=== PATIENT | female | born 1945 | race Caucasian/White ===

== ENCOUNTER 2020-04-03 16:44 | Inpatient (IN) ==
[2020-04-03] MEDS ORDERED: LORazepam 1 MG/2 ML VIAL IV STA (17:21)
[2020-04-03 17:28] LABS: Basophils # (auto) 0.01 K/uL (0-0.2); Basophils % (auto) 0.2 %; Eosinophils # (auto) 0.14 K/uL (0-0.5); Eosinophils % (auto) 2.5 %; Hematocrit (blood only) 44.9 % (37-47); Hemoglobin 15.6 g/dL (12.0-16.0); Lymphocytes % (auto) 37.4 %; Mean Corpuscular Hemoglobin 34.4 pg (25-34); Mean Corpuscular Hgb Conc 34.7 g/dL (32-36); Mean Corpuscular Volume 98.9 fL (80-100); Mean Platelet Volume 8.7 fL (7.4-10.4); Monocytes # (auto) 0.53 K/uL (0.11-0.59); Monocytes % (auto) 9.4 %; Neutrophils # (auto) 2.83 K/uL (1.4-6.5); Neutrophils % (auto) 50.5 %; Platelet Count 265 K/uL (130-400); RDW Coefficient of Variation 13.1 % (11.5-14.5); RDW Standard Deviation 47.4 fL (36.4-46.3); Red Blood Count 4.54 M/uL (4.2-5.4); White Blood Count 5.61 K/uL (4.8-10.8)
[2020-04-03 17:35] LABS: Albumin Level 4.1 gm/dl (3.4-5.0); BUN Creatinine Ratio 9.9 (10-20); Calcium 9.5 mg/dl (8.5-10.1); Creatinine Clr Calc Pharmacy 53.7 ml/min; Est GFR (Non-African American) 63.8; Magnesium 2.2 mg/dl (1.8-2.4); Potassium 3.9 mmol/L (3.5-5.1)
[2020-04-03 17:43] LABS: Partial Thromboplastin Time 27.4 Seconds (21.0-31.0); Prothrombin Time 10.6 Seconds (9.0-12.0)
--- NOTE | 2020-04-03 17:44 | XRay Report ---
XR chest 1V portable CLINICAL HISTORY: weakness COMPARISON STUDY: No previous studies for comparison. FINDINGS: The cardiac and mediastinal contours are normal. There is no evidence of focal pulmonary co nsolidation. There is no evidence of failure. No pleural effusions are visualized.[Slightly prominent markings the right medial lung base, likely representing a summation of vascular markings breast sha araceli and perhaps minor atelectasis. IMPRESSION: No active disease in the chest. ACT 112: Negative or not required by law. Electronically signed by: Dandre Oconnor M.D. 04/03/2020 5:43 PM
--- NOTE | 2020-04-03 17:49 | Emergency Department Note ---
Impression & Plan Hypertensive crisis, Hypertension, Headache ED Provider Note NAME: GLENIS RIVER AGE: 74 SEX: F : 1945 ARRIVES VIA: Ambulance INFORMANT: Patient, prehospital personnel ED PROVIDER(S): Jose Guadalupe Osuna DO CHIEF COMPLAINT: Elevated blood pressure HPI: The patient is a 74-year-old female who has a history of chronic hyper tension who presented to the emergency department for an evaluation of elevated blood pressure. The patient was seen at her primary care physician's office today and was noted to have a very elevated blood pressure. She complains of dizziness and headache. She also complains of back pain. Because of the symptoms her primary care physician called 911 and the patient arrived at the emergency department via ambulance. The patient denies having any nausea or vomiting. She has no chest pain. She denies having any lower extremity swelling or pain. She does have a history of abdominal aortic aneurysm but has no abdominal pain. She states her back pain is in her left upper thoracic area. She denies having any recent trauma. She states that she has been compliant with her outpatient medication regimen. She recently had a calcium channel david added to her drug regimen. She states that it was amlodipine. ROS: See above HPI for pertinent positives & negatives. A total of 10 systems reviewed and were otherwise negative. PAST MEDICAL HISTORY: See Below PAST SURGICAL HISTORY: See Below FAMILY HISTORY: See Below SOCIAL HISTORY: See Below HOME MEDICATIONS: See Below ALLERGIES: See Below VITALS: See Below PHYSICAL EXAMINATION: GENERAL: The patient is awake and alert. She is very anxious appearing. EYES: The conjunctivae are clear. The pupils are round and reactive. EARS, NOSE, MOUTH AND THROAT: The nose is without any evidence of any deformity. NECK: The neck is nontender and supple. RESPIRATORY: Normal respiratory effort is noted there is no evidence of wheezing rhonchi or rales CARDIOVASCULAR: Regular rate and rhythm noted there no murmurs rubs or gallops normal S1 normal S2. GASTROINTESTINAL: The abdomen is soft. Abdomen is nontender. BACK: No midline tenderness was elicited. There is tenderness around the left scapula. MUSCULOSKELETAL/EXTREMITIES: There is no evidence of gross deformity full range of motion is noted in the hips and shoulders. SKIN: There is no obvious evidence of any rash. There are no petechiae, pallor or cyanosis noted. Pulses are symmetric in both feet. NEUROLOGIC: Patient is awake alert and oriented x3 strength is symmetric patellar reflexes are 2+ bilaterally MEDICAL DECISION MAKING: The patient is a 74-year-old female who presented to the emergency department for an evaluation of neck pain headache and elevated blood pressure. She was seen by her primary care physician recently for similar complaints and returned to the primary care physician today for recheck after starting a new blood pressure medication. She was found to have very elevated blood pressure. This was felt to be the cause of some of her symptoms. She was sent to the emergency department by ambulance. The patient was treated with medication for blood pressure in the emergency department. She was also treated for anxiety in the emergency department. Pressure was significantly improved. [facility] have agreed to evaluate the patient in the emergency department for further management and disposition. Triage Nursing notes reviewed. Prior medical records reviewed Vital Signs: reviewed and remarkable for elevated blood pressure. Differential diagnosis: Benign hypertension, hypertensive emergency, cardiovascular pathology, toxicologic, pheochromocytoma, electrolyte abnormality, renal disease, endorgan damage, as well as other pathologies. ER treatment provided: See below Diagnostics interpreted by me: ECG: EKG was obtained in the emergency department. My interpretation is sinus bradycardia at 59 bpm. There is no ectopy. There was no acute ST segment abnormalities noted. No previous tracing was available for comparison. Cardiac Monitoring: An order was placed for continuous cardiac monitoring. The monitor shows a rate of 60 bpm with sinus rhythm. Laboratory studies: As stated above and show below. Imaging studies: See below Consultation(s): 1919: I discussed this case with Dr. Tristan who [facility]. Past Med/Surg History Medical History Abdominal aortic aneurysm Carotid stenosis Cerebrovascular disease COPD (chronic obstructive pulmonary disease) Coronary artery disease Dyslipidemia Essential tremor FH: total abdominal hysterectomy and bilateral salpingo-oophorectomy Hiatal hernia Hypertension Iliac artery stenosis, right Major depressive disorder Schatzki's ring Tobacco use disorder Surgical History H/O section Hx of colonoscopy Social History Smoking Status: Current every day smoker Cigarettes Per Day: 3; Hx Alcohol Use: No Hx Substance Use: No Beliefs That Will Affect Care: None Current Living Situation: Family Other Information That Helps Us Care for You: No Feels Safe at Home: Yes Safety Concerns: Feels Safe At This Time Assistive Devices: Glasses Allergies Allergies Allergy/AdvReac Type Severity Reaction Status Date / Time lisinopril [From Zestril] Allergy Intermediate Cough Verified 04/03/20 17:54 amlodipine AdvReac Intermediate headache/puffy Verified 04/03/20 20:32 head sensation as per px hydroxyzine [From Vistaril] AdvReac Intermediate FELT VERY Verified 04/03/20 17:54 "JUMPY". IVP DYE AdvReac Intermediate HEART Uncoded 04/03/20 17:54 RACING, PALPITATIONS Home Meds Home Medications Medication Instructions Recorded Confirmed citalopram 10 mg PO HS 04/03/20 04/03/20 clopidogrel 75 mg PO .DAILY @ 1300 04/03/20 04/03/20 lorazepam 0.5 mg PO BID 04/03/20 04/03/20 losartan-hydrochlorothiazide 1 tab PO QAM 04/03/20 04/03/20 pravastatin 20 mg PO HS 04/03/20 04/03/20 Results & Data (ED) Vital Signs Vital Signs - 24 hr 04/03/20 16:56 04/03/20 17:23 04/03/20 17:30 Temperature 36.5 C Temperature Source Oral Pulse Rate 77 56 L Respiratory Rate 17 21 Respiratory Effort / Characteristics Non-Labored Spontaneous Respiratory Depth Normal Blood Pressure 236/88 H 211/92 H Blood Pressure Mean 137 131 Pulse Oximetry 99 98 Oxygen Delivery Method Room Air Room Air Sepsis Recent Fever Within 48 Hours No Sepsis New/Unexplained Change in Mental Status N/A Sepsis Action Taken by Nursing No Action Required 04/03/20 18:31 04/03/20 18:57 04/03/20 19:28 Temperature Temperature Source Pulse Rate 55 L 56 L 63 Respiratory Rate 22 19 22 Respiratory Effort / Characteristics Respiratory Depth Blood Pressure 199/69 H 190/90 H 172/89 H Blood Pressure Mean 112 123 116 Pulse Oximetry 96 96 97 Oxygen Delivery Method Room Air Sepsis Recent Fever Within 48 Hours Sepsis New/Unexplained Change in Mental Status Sepsis Action Taken by Nursing 04/03/20 20:01 04/03/20 20:31 Temperature Temperature Source Pulse Rate 60 68 Respiratory Rate 21 24 Respiratory Effort / Characteristics Respiratory Depth Blood Pressure 194/71 H 158/83 H Blood Pressure Mean 112 108 Pulse Oximetry 96 96 Oxygen Delivery Method Sepsis Recent Fever Within 48 Hours Sepsis New/Unexplained Change in Mental Status Sepsis Action Taken by Snf Medications Current Medication List: was personally reviewed by me Laboratory Data Attestation: I reviewed the patient's lab results. Result diagrams: 04/03/20 Unknown 04/03/20 Unknown Lab Results 04/03/20 04/03/20 04/03/20 Range/Units 18:03 19:46 19:46 Urine Color Yellow Urine Appearance Clear (Clear) Urine pH 7.0 (4.5-7.5) Ur Specific [place] 1.009 (1.000-1.030) Urine Protein Negative (Negative) Urine Glucose (UA) Negative (Negative) Urine Ketones Negative (Negative) Urine Blood 1+ H (Negative) Urine Nitrite Negative (Negative) Urine Bilirubin Negative (Negative) Urine Urobilinogen Negative (Negative) Ur Leukocyte Esterase Negative (Negative) Urine WBC (Auto) 1-5 (0-5) /hpf Urine RBC (Auto) 5-10 H (0-4) /hpf U Hyaline Cast (Auto) 1-5 (0-5) /lpf U Epithel Cells (Auto) >30 H (0-5) /lpf Urine Bacteria (Auto) Negative (Negative) COVID-19 Eval Order Covid19 IDNow [facility] SARS-CoV-2, RNA, NAAT NEGATIVE (NEGATIVE) Administered Medications Discontinued Medications Hydralazine HCl (Hydralazine Hcl 20 Mg/Ml Vial) 5 mg IV NOW ONE Stop: 04/03/20 18:45 Last Admin: 04/03/20 18:57 Dose: 5 mg Documented by: [id number] Hydralazine HCl (Hydralazine 10 Mg Tab) 10 mg PO NOW STA Stop: 04/03/20 20:16 Last Admin: 04/03/20 21:08 Dose: 10 mg Documented by: [id number] Lorazepam (Ativan) 1 mg in 2 mls @ 2 mls/min IV NOW STA Stop: 04/03/20 17:22 Last Admin: 04/03/20 18:01 Dose: 2 mls/min Documented by: [id number] Lorazepam (Ativan) 0.5 mg in 1 mls @ 1 mls/min IV NOW STA Stop: 04/03/20 20:16 Last Admin: 04/03/20 20:41 Dose: 1 mls/min Documented by: [id number] Imaging Data Radiologist's Impression: Patient: GLENIS RIVERAdmit Date: 04/03/20MR#: [id number]: [address]Acct ID:[id number]: Date: [address] [place] [address] Zip: [place] [id number]: 74Location: EDSex: FRoom/Bed:Att Phy:Diagnosis: HTNPri Phy: PCP,NOService Date: 04/03/20Fam Phy:Interpreting Phy: Dandre Oconnor MDAdmit Phy: Ordering Phy: Jose Guadalupe Osuna DO cc: ~ CT head/brain wo con CLINICAL HISTORY: Severe headache COMPARISON STUDY: No previous studies for comparison. TECHNIQUE: Axial CT of the brain is performed from the vertex to the skull base. IV contrast was not administered for this examination. A dose lowering technique was utilized adhering to the principles of ALARA. CT DOSE: 537.48 mGy.cm FINDINGS: No intra or extra-axial mass lesions are visualized. There is no CT evidence of acute cortical infarction. There is no evidence of midline shift. There is no acute hemorrhage. No calvarial fractures are visualized. There are patchy white matter hypodensities likely on a small vessel basis. Prominent extra-axial CSF space within the frontal regions is likely secondary to atrophy. There is no evidence of pathologic ventricular dilatation. There is no evidence of acute sinusitis IMPRESSION: No acute intracranial findings ACT 112: Negative or not required by law. Electronically signed by: Dandre Oconnor M.D. 04/03/2020 5:48 PM Dictated: 04/03/201746Transcribed: 04/03/201746 Patient: GLENIS RIVERAdmit Date: 04/03/20MR#: [id number]: [address]Acct ID:[id number]: Date: [address] [place] [address] Zip: [place] [id number]: 74Location: EDSex: FRoom/Bed:Att Phy:Diagnosis: HTNPri Phy: PCP,NOService Date: 04/03/20Fam Phy:Interpreting Phy: Dandre Oconnor MDAdmit Phy: Ordering Phy: Jose Guadalupe Osuna, cc: ~ XR chest 1V portable CLINICAL HISTORY: weakness COMPARISON STUDY: No previous studies for comparison. FINDINGS: The cardiac and mediastinal contours are normal. There is no evidence of focal pulmonary consolidation. There is no evidence of failure. No pleural effusions are visualized.[Slightly prominent markings the right medial lung b ase, likely representing a summation of vascular markings breast shadow and perhaps minor atelectasis. IMPRESSION: No active disease in the chest. ACT 112: Negative or not required by law. Electronically signed by: Dandre Oconnor M.D. 04/03/2020 5:43 PM Dictated: 04/03/20 174Transcribed: 04/03/201741 Blood Pressure Blood Pressure Findings: Elevated blood pressure Blood Pressure Disposition: further management by hospitalist Discharge Plan Visit Data Chief Complaint: Hypertension Stated Complaint: HTN ED Provider: Jose Guadalupe Osuna Discharge Problem: Hypertensive crisis, Hypertension, Headache Patient Disposition: Admitted As Inpatient Condition: Good Discharge Instructions Interventions: ED Discharge Assessment Last Done: 04/03/20 21:05 Discharge Problem: Hypertension Qualifiers: Hypertension type: unspecified Qualified Code(s): I10 - Essential (primary) hypertension Headache Qualifiers: Headache type: unspecified Headache chronicity pattern: unspecified pattern Intractability: not intractable Qualified Code(s): R51.9 - Headache, unspecified
[2020-04-03 18:00] LABS: Bilirubin,Total 0.6 mg/dl (0.2-1); Globulin 4.1 gm/dl (2.5-4.0); Thyroid Stimulating Hormone 3.99 uIu/ml (0.300-4.500); Total Protein 8.2 gm/dl (6.4-8.2)
[2020-04-03 18:40] LABS: Appearance Urine Clear (Clear); Bacteria Urine Automated Negative (Negative); Bilirubin Urine Negative (Negative); Blood Urine 1+ (Negative); Color Urine Yellow; Epithelial Cell Urine Auto >30 /lpf (0-5); Glucose Urine UA Negative (Negative); Ketones Urine Negative (Negative); Leukocyte Esterase Urine Negative (Negative); Nitrite Urine Negative (Negative); Protein Urine Negative (Negative); Specific Gravity Urine 1.009 (1.000-1.030); Urobilinogen Urine Negative (Negative)
[2020-04-03] MEDS ORDERED: hydrALAZINE HCL 20 MG/ML VIAL IV ONE (18:44)
[2020-04-03] MEDS ORDERED: hydrALAZINE 10 MG TAB PO STA (20:15)
[2020-04-03] MEDS ORDERED: LORazepam 0.5 MG/1 ML VIAL IV STA (20:15)
--- NOTE | 2020-04-03 20:17 | History & Physical Report ---
Date of Service April 03, 2020 Assessment & Plan (1) Hypertensive crisis: Anxiety contributory Rule out sleep disordered breathing as contributory factor hx CVA hx CAD/PVD status post surgery hyperlipidemia, on statin Rx COPD, pulmonary status at baseline ongoing tobacco abuse prediabetes, recent outpatient hemoglobin A1c of 5.13 September 2019 PCU Add Hydralazine to current Losartan HCTZ Cardiology consult if BP unimproved in a.m. Anxiolytic as needed Psych consult Re: Overwhelming anxiety Outpatient sleep study Nicotine patch as needed DVT prophylaxis. Lovenox subcu Full code Text document was generated using [employer] voice recognition software. It may contain grammatical or spelling errors. Kindly contact undersigned for clarification of any documentation item in question. History of Present Illness Chief Complaint: High blood pressure Primary Care Provider: Dr. Miranda History obtained from patient and records. Medical history significant for CAD, CVA, PVD status post surgery, hypertension, hypertension, hyperlipidemia, COPD, ongoing tobacco abuse, prediabetes, anxiety/mood disorder. 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 Enalapril HCTZ switched to losartan HCTZ by PCP last week due to cough concerns with latter medication. Initially one half later to a whole tablet once daily. SBP 170s to 180s at home. Patient Amlodipine stopped after patient stated concerns about her head feeling very puffy from medication. Admits to overwhelming anxiety. Patient denies chest pain, S OB. Denies dietary discretion. Admits to snoring and disruptive sleep. No prior sleep studies. SBP at home 180s to 190s despite new medication. Mild dizziness complaints without headache. Posterior achy neck pain symptoms. SBP 230s at PCP's office. Patient sent to the ER for evaluation. IV hydralazine given at the ER. SBP currently 190s. 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 IVP DYE AdvReac Intermediate HEART Uncoded 04/03/20 17:54 RACING, PALPITATIONS Home Medications Medication Instructions Recorded Confirmed Type citalopram 10 mg PO HS 04/03/20 04/03/20 History clopidogrel 75 mg PO .DAILY @ 1300 04/03/20 04/03/20 History lorazepam 0.5 mg PO BID 04/03/20 04/03/20 History losartan-hydrochlorothiazide 1 tab PO QAM 04/03/20 04/03/20 History pravastatin 20 mg PO HS 04/03/20 04/03/20 History hydralazine 25 mg PO TID 30 Days #90 tab 04/06/20 Rx trazodone 25 mg PO HS PRN 30 Days #30 tab 04/06/20 Rx Past Med/Surg History Medical History Abdominal aortic aneurysm Carotid stenosis Cerebrovascular disease COPD (chronic obstructive pulmonary disease) Coronary artery disease Dyslipidemia Essential tremor FH: total abdominal hysterectomy and bilateral salpingo-oophorectomy Hiatal hernia Hypertension Iliac artery stenosis, right Major depressive disorder Schatzki's ring Tobacco use disorder Surgical History H/O section Hx of colonoscopy Social History Smoking Status: Current every day smoker Cigarettes Per Day: 3; Hx Alcohol Use: No Hx Substance Use: No Beliefs That Will Affect Care: Cheondoism (Buddhist ) Current Living Situation: Family Feels Safe at Home: Yes Assistive Devices: Glasses Review of Systems Review of Systems: As per HPI, all 10 systems reviewed, all other ROS negative Physical Exam Physical Exam: GENERAL: Comfortable, anxious, obese, well-groomed, no respiratory distress, tremulous SKIN: Normal color, warm HEENT: Bespectacled, [place] palpebral conjunctivae, no ptosis, moist buccal mucosa NECK : Supple, short neck, no tenderness CHEST : Decreased breath sounds , no tenderness HEART : Bradycardic, no obvious murmurs ABDOMEN: Some distention, nontender EXTREMITIES : Minimal LE swelling, no LE tenderness, no other conspicuous deformities noted NEUROLOGIC : Coherent, no facial asymmetry, chronic rest tremors, no other gross focality Results & Data Results & Data ([facility]) Vital Signs (Past 12 Hours) Vital Signs Temp Pulse Resp BP Pulse Ox 04/03/20 20:01 60 21 194/71 H 96 04/03/20 19:28 63 22 172/89 H 97 04/03/20 18:57 56 L 19 190/90 H 96 04/03/20 18:31 55 L 22 199/69 H 96 04/03/20 17:30 56 L 21 211/92 H 98 04/03/20 16:56 36.5 C 77 17 236/88 H 99 Laboratory Results Laboratory Results WBC 5.61 K/uL (4.8-10.8) 04/03/20 Unknown RBC 4.54 M/uL (4.2-5.4) 04/03/20 Unknown Hgb 15.6 g/dL (12.0-16.0) 04/03/20 Unknown Hct 44.9 % (37-47) 04/03/20 Unknown MCV 98.9 fL (80-100) 04/03/20 Unknown MCH 34.4 pg (25-34) H 04/03/20 Unknown MCHC 34.7 g/dL (32-36) 04/03/20 Unknown RDW Std Deviation 47.4 fL (36.4-46.3) H 04/03/20 Unknown RDW Coeff of Sho 13.1 % (11.5-14.5) 04/03/20 Unknown Plt Count 265 K/uL (130-400) 04/03/20 Unknown MPV 8.7 fL (7.4-10.4) 04/03/20 Unknown Immature Gran % (Auto) 0.0 % 04/03/20 Unknown Neut % (Auto) 50.5 % 04/03/20 Unknown Lymph % (Auto) 37.4 % 04/03/20 Unknown [place] % (Auto) 9.4 % 04/03/20 Unknown Eos % (Auto) 2.5 % 04/03/20 Unknown Baso % (Auto) 0.2 % 04/03/20 Unknown Neut # (Auto) 2.83 K/uL (1.4-6.5) 04/03/20 Unknown Lymph # (Auto) 2.10 K/uL (1.2-3.4) 04/03/20 Unknown [place] # (Auto) 0.53 K/uL (0.11-0.59) 04/03/20 Unknown Eos # (Auto) 0.14 K/uL (0-0.5) 04/03/20 Unknown Baso # (Auto) 0.01 K/uL (0-0.2) 04/03/20 Unknown Immature Gran # (Auto) 0.00 K/uL (0.00-0.02) 04/03/20 Unknown PT 10.6 Seconds (9.0-12.0) 04/03/20 Unknown INR 1.0 (0.9-1.1) 04/03/20 Unknown APTT 27.4 Seconds (21.0-31.0) 04/03/20 Unknown PTT Ratio 1.0 04/03/20 Unknown Sodium 136 mmol/L (136-145) 04/03/20 Unknown Potassium 3.9 mmol/L (3.5-5.1) 04/03/20 Unknown Chloride 101 mmol/L (98-107) 04/03/20 Unknown Carbon Dioxide 28 mmol/L (21-32) 04/03/20 Unknown Anion Gap 7.0 (3-11) 04/03/20 Unknown BUN 9 mg/dl (7-18) 04/03/20 Unknown Creatinine 0.88 mg/dl (0.6-1.2) 04/03/20 Unknown Est Cr Clr Drug Dosing 53.7 ml/min 04/03/20 Unknown Est GFR ( Amer) 74.0 04/03/20 Unknown Est GFR (Non-Af Amer) 63.8 04/03/20 Unknown BUN/Creatinine Ratio 9.9 (10-20) L 04/03/20 Unknown Glucose 93 mg/dl (70-99) 04/03/20 Unknown Calcium 9.5 mg/dl (8.5-10.1) 04/03/20 Unknown Magnesium 2.2 mg/dl (1.8-2.4) 04/03/20 Unknown Total Bilirubin 0.6 mg/dl (0.2-1) 04/03/20 Unknown AST 15 U/L (15-37) 04/03/20 Unknown ALT 22 U/L (12-78) 04/03/20 Unknown Alkaline Phosphatase 92 U/L (45-117) 04/03/20 Unknown Total Protein 8.2 gm/dl (6.4-8.2) 04/03/20 Unknown Albumin 4.1 gm/dl (3.4-5.0) 04/03/20 Unknown Globulin 4.1 gm/dl (2.5-4.0) H 04/03/20 Unknown Albumin/Globulin Ratio 1.0 (0.9-2) 04/03/20 Unknown TSH 3.990 uIu/ml (0.300-4.500) 04/03/20 Unknown Urine Color Yellow 04/03/20 18:03 Urine Appearance Clear (Clear) 04/03/20 18:03 Urine pH 7.0 (4.5-7.5) 04/03/20 18:03 Ur Specific [place] 1.009 (1.000-1.030) 04/03/20 18:03 Urine Protein Negative (Negative) 04/03/20 18:03 Urine Glucose (UA) Negative (Negative) 04/03/20 18:03 Urine Ketones Negative (Negative) 04/03/20 18:03 Urine Blood 1+ (Negative) H 04/03/20 18:03 Urine Nitrite Negative (Negative) 04/03/20 18:03 Urine Bilirubin Negative (Negative) 04/03/20 18:03 Urine Urobilinogen Negative (Negative) 04/03/20 18:03 Ur Leukocyte Esterase Negative (Negative) 04/03/20 18:03 Urine WBC (Auto) 1-5 /hpf (0-5) 04/03/20 18:03 Urine RBC (Auto) 5-10 /hpf (0-4) H 04/03/20 18:03 U Hyaline Cast (Auto) 1-5 /lpf (0-5) 04/03/20 18:03 U Epithel Cells (Auto) >30 /lpf (0-5) H 04/03/20 18:03 Urine Bacteria (Auto) Negative (Negative) 04/03/20 18:03 COVID-19 Eval Order Covid19 IDNow [facility] 04/03/20 19:[address] head: No acute intracranial findings Chest x-ray : No active disease in the chest. EKG as per my interpretation : Rate 55, sinus bradycardia, LAD, LAFB, no ischemia
[2020-04-03] MEDS ORDERED: ACETAMINOPHEN 325 MG TAB PO PRN (21:44)
[2020-04-03] MEDS ORDERED: PROMETHAZINE HCL 12.5 MG in SODIUM CHLORIDE 0.9% 50 ML IV PRN (21:44)
[2020-04-03] MEDS ORDERED: MoRPHine SULFATE 4 MG/ML 1 ML CARP\\VIAL IV PRN (21:44)
[2020-04-03] MEDS ORDERED: traMADol HCL 50 MG TABLET PO PRN (21:44)
[2020-04-03] MEDS: CITALOPRAM 20 MG TAB PO SCH (22:14)
[2020-04-03] MEDS: PRAVASTATIN SOD 20 MG TAB PO SCH (22:15)
[2020-04-03] MEDS: CLOPIDOGREL BISULFATE 75 MG TAB PO SCH (22:15)
[2020-04-03] MEDS: LORazepam 0.5 MG TAB PO SCH (22:18)
[2020-04-04 07:10] LABS: Eosinophils # (auto) 0.14 K/uL (0-0.5); Eosinophils % (auto) 2.8 %; Hematocrit (blood only) 40.8 % (37-47); Hemoglobin 14.1 g/dL (12.0-16.0); Immature Granulocytes # (auto) 0.01 K/uL (0.00-0.02); Immature Granulocytes % (auto) 0.2 %; Lymphocytes # (auto) 1.98 K/uL (1.2-3.4); Lymphocytes % (auto) 38.9 %; Mean Corpuscular Hemoglobin 34.1 pg (25-34); Mean Corpuscular Hgb Conc 34.6 g/dL (32-36); Mean Corpuscular Volume 98.6 fL (80-100); Mean Platelet Volume 8.5 fL (7.4-10.4); Monocytes # (auto) 0.49 K/uL (0.11-0.59); Monocytes % (auto) 9.6 %; Neutrophils # (auto) 2.47 K/uL (1.4-6.5); Neutrophils % (auto) 48.5 %; Platelet Count 214 K/uL (130-400); RDW Coefficient of Variation 13.2 % (11.5-14.5); RDW Standard Deviation 47.6 fL (36.4-46.3); Red Blood Count 4.14 M/uL (4.2-5.4); White Blood Count 5.09 K/uL (4.8-10.8)
[2020-04-04 07:41] LABS: BUN Creatinine Ratio 12.5 (10-20); Calcium 9.5 mg/dl (8.5-10.1); Creatinine Clr Calc Pharmacy 51.5 ml/min; Est GFR (African American) 69.2; Est GFR (Non-African American) 59.7; Potassium 3.9 mmol/L (3.5-5.1)
[2020-04-04] MEDS: NICOTINE 21 MG/24 HR TDSY TD SCH (08:20)
[2020-04-04] MEDS: ENOXAPARIN INJ 40 MG/0.4 ML SYR SQ SCH (08:20)
[2020-04-04] MEDS: hydrALAZINE 10 MG TAB PO SCH ×4 (08:21→20:28)
[2020-04-04] MEDS: LOSARTAN POTASSIUM 50 MG TAB PO SCH (08:29)
[2020-04-04] MEDS ORDERED: hydroCHLOROthiazide 25 MG TAB PO SCH (09:00)
[2020-04-04] MEDS: LORazepam 0.5 MG TAB PO SCH ×2 (10:06→20:31)
[2020-04-04] MEDS: CLOPIDOGREL BISULFATE 75 MG TAB PO SCH (12:09)
--- NOTE | 2020-04-04 12:55 | Electrocardiogram Report ---
Test Reason : Blood Pressure : / mmHG Vent. Rate : 059 BPM Atrial Rate : 059 BPM P-R Int : 184 ms QRS Dur : 074 ms QT Int : 410 ms P-R-T Axes : 022 -21 044 degrees QTc Int : 405 ms Sinus bradycardia possible Inferior infarct , age undetermined Abnormal ECG No previous ECGs available Confirmed by Asher Cotter ([id number] on 04/04/2020 12:55:44 PM Referred By: Bell Rojo Confirmed By:Erasto Cotter
--- NOTE | 2020-04-04 15:07 | Psychiatric Consultation ---
Date of Consultation April 04, 2020 Impression / Recommendations Impression Dr. Marcelino Rocha was directly involved in review and discussion of the patient's case and participated in medical decision making regarding treatment recommendations. RECOMMENDATIONS: 04/04 - Psychiatric consultation requested to evaluate patient for anxiety, with concerns it may be contributing to her hypertension. - Pt does admit to history of anxiety, but denies any current significant stressors. Her primary concern is her elevated blood pressure, which she feels triggers her anxiety. Pt denied significant concerns related to anxiety prior to being referred to the ED by her PCP. Pt is requesting cardiology consultation as she is very concerned about her cardiac/cardiovascular history. - We will continue her current medication regimen of citalopram 10mg and nathaniel zepam 1mg BID, as patient does not feel there is an acute need for medication adjustments. She did at least agree to a prn dose of trazodone 25mg for insomnia (could increase to 50mg if needed), which she states had been very helpful in the past. If effective, could be provided on discharge if approved by primary team. - Pt denies SI and any acute psychiatric concerns. No indication for inpa tient psychiatric hospitalization. Pt denies a need for formal psychiatric services as an outpatient. Please reach out to our service with any additional questions or updates. Risk Factors Assessment Do You Have Access To A Gun?: No Psych History Identifying Data 74-year-old female admitted medically on 04/03/2020 upon referral from her PCP's office with hypertensive crisis. Pt did report anxiety, which led to hospitalist request for psychiatric consultation. Chief Complaint "Who are you? I need to see that heart doctor." History of Present Illness Mago Franco is a 74-year-old female admitted medically on 04/03/2020 upon referral from her PCP's office for hypertensive crisis. SBP was reportedly in the 230's at PCP's office. Psychiatric consultation was requested by our hospitalist team due to concerns anxiety may be contributing to the patient's hypertension. Pt did participate in initial evaluation with our psychiatric nurse liaison team, and reported "today I'm not feeling anxious." Pt did participate in additional psychiatric assessment with this provider. She begins the conversation by asking this provider's name again, and then stating "I need to see the heart doctor." Pt shares a bit of her cardiac/cardiovascular history and states she has an abdominal aortic aneurysm and is concerned there is "a blockage somewhere that is leading to how I'm feeling." Pt states she was feeling fine earlier today, but her blood pressure increased "after a walked two laps around here." When asked about anxiety today, the patient state "not until I saw that number" - referring to her blood pressure. Pt denies any particularly distressing situational stressors, aside from her current admission. She does confirm her current medication regimen of citalopram 10mg and lorazepam 0.5mg BID. She does admit that 1-2 days a week she takes 1/4 - 1/2 of a tablet of lorazepam for anxiety that "comes out of no where." Pt shares that she had done well in the past on trazodone, which was started for anxiety/insomnia after the of her in 1987. Pt admits that "sometimes I still have sleepless nights." Pt does admit that sleep here in the hospital has been difficult due to unpredictable behavior of roommates. Pt denies SI/HI, and any acute psychiatric symptoms. She shares that she is not really wanting to change or adjust her psychotropic medications and states "if things are working, why change them. I feel fine." She did agree to a prn dose of trazodone that could be used for insomnia if necessary, as she did have t rouble sleeping last night due to her roommate. Pt agreed to a 25mg dose being available. Pt denied feeling a need for any formal psychiatric services as an outpatient. She did become tearful toward the end of our interview, admitting she was scared that "I really think there is something going on, and I hope they can figure it out." Pt was reassured that our staff would continue to check in with her during her stay. She was encouraged to reach out to our service with any additional questions. Past Psychiatric History Current Psychiatric Diagnosis: Anxiety Outpatient Services: None - medications prescribed by PCP Previous Psych Admissions: None Do You Have Access To A Gun?: No History of Previous Suicide Attempt: No Past Medication Trials: States she was put on trazodone for anxiety/insomnia after the of her in 1987. Allergies Allergy/AdvReac Type Severity Reaction Status Date / Time lisinopril [From Zestril] Allergy Intermediate Cough Verified 04/03/20 17:54 amlodipine AdvReac Intermediate headache/puffy Verified 04/03/20 20:32 head sensation as per px hydroxyzine [From Vistaril] AdvReac Intermediate FELT VERY Verified 04/03/20 17:54 "JUMPY". IVP DYE AdvReac Intermediate HEART Uncoded 04/03/20 17:54 RACING, PALPITATIONS Home Medications Medication Instructions Recorded Confirmed Type citalopram 10 mg PO HS 04/03/20 04/03/20 History clopidogrel 75 mg PO .DAILY @ 1300 04/03/20 04/03/20 History lorazepam 0.5 mg PO BID 04/03/20 04/03/20 History losartan-hydrochlorothiazide 1 tab PO QAM 04/03/20 04/03/20 History pravastatin 20 mg PO HS 04/03/20 04/03/20 History Family History Denies known family history of mental health conditions. Substance Abuse History Pt states she is an everyday smoker - 1ppd with desire to cut back. Denies significant alcohol use or use of other illicit substances. 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 Patient History Medical History Abdominal aortic aneurysm Carotid stenosis Cerebrovascular disease COPD (chronic obstructive pulmonary disease) Coronary artery disease Dyslipidemia Essential tremor FH: total abdominal hysterectomy and bilateral salpingo-oophorectomy Hiatal hernia Hypertension Iliac artery stenosis, right Major depressive disorder Schatzki's ring Tobacco use disorder Surgical History H/O section Hx of colonoscopy Social History Smoking Status: Current every day smoker Cigarettes Per Day: 3; Hx Alcohol Use: No Hx Substance Use: No Beliefs That Will Affect Care: Presybeterian (Spiritism ) Current Living Situation: Family Other Information That Helps Us Care for You: No Feels Safe at Home: Yes Safety Concerns: Feels Safe At This Time Assistive Devices: Glasses Physical Exam Psychiatric: Orientation: alert, oriented x 3 and cooperative Apperance: appropriately dressed, appropriately groomed and appeared stated age Obese- appearing female, seated on edge of bed in no acute distress. Pt does have a reported essential tremor that affects her head/neck. Appropriately dressed for setting, wearing hospital gown. Wearing corrective lenses. Short hair is neatly styled in curls, level of hygiene and grooming appearing adequate. Eye Contact: good eye contact Motor Behavior: + tremor (reported essential tremor of head/neck - long standing) Speech: normal rate/rhythm/volume of speech Affect: + anxious affect (only mildly so), + tearful affect (only briefly, reports it is related to fear of her hypertension) and mood congruent with affect Mood: + anxious mood ("I was anxious only after reading that number" - referring to BP) Thought Process: goal directed thought process, clear/coherent thought process and + perseveration (she admits she has been very focused on her blood pressure) Thought Content: reality based without delusions; no hopelessness and no worthlessness Suicidal Thoughts: denies suicidal thoughts, denies suicidal plan and denies suicidal intent Homicidal Thoughts: denies homicidal thoughts Hallucinations: no auditory hallucinations and no visual hallucinations Cognition: recent memory grossly intact, attention grossly intact and language grossly intact Estimated Intelligence: consistent with education level Insight: + fair insight Judgement: + fair judgement Vital Signs (Past 24 Hours): Last Vital Signs Temp 36.5 C 04/04/20 12:18 Pulse 70 04/04/20 12:18 Resp 20 04/04/20 12:18 BP 146/74 H 04/04/20 12:18 Pulse Ox 99 04/04/20 12:18 Review of Systems Constitutional: denied Cardiovascular: denied, but admits she is concerned about her blood pressure Respiratory: denied Gastrointestinal: denied Neurological: denied Psychiatric: denies symptoms other than stated above Total of at least 10 systems reviewed, pertinent positives as above and in HPI. Results & Data (PSY) Medications Administered Acetaminophen (Acetaminophen 325 Mg Tab) 650 mg PO Q4H PRN PRN Reason: Pain or Fever Stop: 05/03/20 21:43 Last Admin: 04/04/20 03:10 Dose: 650 mg Documented by: [id number] Citalopram Hydrobromide (Citalopram 20 Mg Tab) 10 mg PO HS [facility] Stop: 05/03/20 21:43 Last Admin: 04/03/20 22:14 Dose: 10 mg Documented by: [id number] Clopidogrel Bisulfate (Clopidogrel Bisulfate 75 Mg Tab) 75 mg PO DAILY@1300 [facility] Stop: 05/03/20 21:43 Last Admin: 04/04/20 12:09 Dose: 75 mg Documented by: [id number] Admin: 04/03/20 22:15 Dose: Not Given Documented by: [id number] Enoxaparin Sodium (Enoxaparin Inj 40 Mg/0.4 Ml Syr) 40 [facility]Q [facility] Stop: 05/04/20 08:59 Last Admin: 04/04/20 08:20 Dose: Not Given Documented by: [id number] Hydralazine HCl (Hydralazine 10 Mg Tab) 10 mg PO QID [facility] Stop: 05/04/20 08:59 Last Admin: 04/04/20 12:21 Dose: 10 mg Documented by: [id number] Admin: 04/04/20 08:21 Dose: 10 mg Documented by: [id number] Hydrochlorothiazide (Hydrochlorothiazide 25 Mg Tab) 12.5 mg PO [facility] Stop: 05/04/20 08:59 Last Admin: 04/04/20 08:21 Dose: 12.5 mg Documented by: [id number] Lorazepam (Lorazepam 0.5 Mg Tab) 0.5 mg PO BID [facility] Stop: 05/03/20 21:43 Last Admin: 04/04/20 10:06 Dose: 0.5 mg Documented by: [id number] Admin: 04/03/20 22:18 Dose: 0.5 mg Documented by: [id number] Losartan Potassium (Losartan Potassium 50 Mg Tab) 100 mg PO QAM [facility] Stop: 05/04/20 08:59 Last Admin: 04/04/20 08:29 Dose: 100 mg Documented by: [id number] Miscellaneous (Remove Nicoderm Patch) 1 ea N/A DAILY@0859 [facility] Stop: 05/04/20 08:58 Last Admin: 04/04/20 08:17 Dose: Not Given Documented by: [id number] Nicotine (Nicotine 21 Mg/24 Hr Tdsy) 21 mg TD QAM [facility] Stop: 05/04/20 08:59 Last Admin: 04/04/20 08:20 Dose: 21 mg Documented by: [id number] Pravastatin Sodium (Pravastatin Sod 20 Mg Tab) 20 mg PO HS [facility] Stop: 05/03/20 21:43 Last Admin: 04/03/20 22:15 Dose: 20 mg Documented by: [id number] Coding Level of Care Code 12486 U Intl Hosp Care Lvl 3
[2020-04-04] MEDS: LORazepam 0.5 MG/1 ML VIAL IV PRN (16:31)
--- NOTE | 2020-04-04 16:33 | Hospitalist Progress Note ---
Date of Service April 04, 2020 Assessment & Plan (1) Hypertensive crisis: Hypertensive urgency CT Head:No acute intracranial findings Anxiety could be contributing Normal TSH Check ECHO H/O Amlodipine Intolerance Continue losartan, hydrochlorothiazide Added Hydralazine Consider Cardiology eval if needed May need sleep study as outpatient Anxiety Disorder Continue citalopram 10 mg and lorazepam 1mg BID Trazodone 25 mg as needed for insomnia Appreciate Psychiatry Input Hyperlipidemia H/O CVA PVD S/P surgery on statin, Plavix COPD Pulmonary status at baseline Monitor Prediabetes Outpatient hemoglobin A1c of 5.13 September 2019 Tobacco use disorder Advised to quit smoking Nicotine patch DVT Px: Lovenox SQ Code Status Full code Admission and Anticipated Discharge Date Admission Date: April 03, 2020 Subjective Patient is seen and examined at bedside States headache resolved Denies any change in vision Denies chest pain, shortness of breath, dizziness, nausea, abdominal pain Admits to having anxiety issues Offers no other complaints Review of Systems Review of Systems: All systems reviewed & are unremarkable except as noted in HPI & below Physical Exam Physical Exam: Physical Exam: Vitals signs as noted above General Appearance:Moderately built and nourished, no apparent distress Head: normocephalic, Atraumatic Eyes: normal inspection, EOMI Neck: supple, Trachea midline Respiratory/Chest: Normal breath sounds, CTA Cardiovascular: S1, S2, No murmur Abdomen/GI:Soft, Non tender, Bowel sounds present Extremities/Musculoskelatal:normal inspection, no edema Neurologic/Psych:AAOX3, grossly no focal neurological deficits Skin: normal color, warm Results & Data Results & Data ([facility]) Vital Signs (Past 12 Hours) Vital Signs Temp Pulse Pulse Resp BP BP Pulse Ox 04/04/20 15:26 36.6 C 69 22 193/102 H 184/83 H 96 04/04/20 12:18 36.5 C 70 20 146/74 H 99 04/04/20 08:19 36.6 C 71 16 150/82 H 97 04/04/20 07:40 56 L Laboratory Results Short CBC 04/03/20 04/04/20 Range/Units Unknown 06:45 WBC 5.61 5.09 (4.8-10.8) K/uL Hgb 15.6 14.1 (12.0-16.0) g/dL Hct 44.9 40.8 (37-47) % Plt Count 265 214 (130-400) K/uL BMP 04/03/20 04/04/20 Unknown 06:45 Sodium 136 139 Potassium 3.9 3.9 Chloride 101 104 Carbon Dioxide 28 28 BUN 9 12 Creatinine 0.88 0.93 Glucose 93 94 Calcium 9.5 9.5 Liver Function 04/03/20 Range/Units Unknown Total Bilirubin 0.6 (0.2-1) mg/dl AST 15 (15-37) U/L ALT 22 (12-78) U/L Alkaline Phosphatase 92 (45-117) U/L Albumin 4.1 (3.4-5.0) gm/dl Urine 04/03/20 Range/Units 18:03 Urine Color Yellow Urine Appearance Clear (Clear) Urine pH 7.0 (4.5-7.5) Ur Specific [place] 1.009 (1.000-1.030) Urine Protein Negative (Negative) Urine Glucose (UA) Negative (Negative)
[2020-04-04] MEDS ORDERED: traZODone HCL 50 MG TAB PO PRN (17:22)
[2020-04-04] MEDS: CITALOPRAM 20 MG TAB PO SCH (20:28)
[2020-04-04] MEDS: PRAVASTATIN SOD 20 MG TAB PO SCH (20:29)
[2020-04-04] MEDS ORDERED: ALUMINUM/MAGNESIUM SUSP 30 ML UDC PO STA (20:51)
[2020-04-04] MEDS ORDERED: hydrALAZINE HCL 25 MG TAB PO STA (20:54)
[2020-04-04] MEDS: NITROGLYCERIN SL 0.4 MG/TAB TAB SL STA ×2 (21:24→22:13)
[2020-04-04 21:27] LABS: Partial Thromboplastin Time 26.6 Seconds (21.0-31.0)
[2020-04-04] MEDS ORDERED: diphenhydrAMINE 50 MG/ML VIAL IV STA (22:43)
[2020-04-04] MEDS ORDERED: methylPREDNISolone 40 MG in SYRINGE 0 ML IV STA (22:46)
[2020-04-05] MEDS ORDERED: OPTIRAY 320 125ml IV ONE (00:26)
[2020-04-05] MEDS ORDERED: bisacodyL 10 MG SUPP PR PRN (00:54)
[2020-04-05 02:38] LABS: Eosinophils # (auto) 0.02 K/uL (0-0.5); Eosinophils % (auto) 0.3 %; Hematocrit (blood only) 41.9 % (37-47); Hemoglobin 14.9 g/dL (12.0-16.0); Immature Granulocytes # (auto) 0.01 K/uL (0.00-0.02); Immature Granulocytes % (auto) 0.1 %; Lymphocytes # (auto) 0.71 K/uL (1.2-3.4); Lymphocytes % (auto) 10.1 %; Mean Corpuscular Hemoglobin 34.6 pg (25-34); Mean Corpuscular Hgb Conc 35.6 g/dL (32-36); Mean Corpuscular Volume 97.2 fL (80-100); Mean Platelet Volume 8.5 fL (7.4-10.4); Monocytes # (auto) 0.09 K/uL (0.11-0.59); Monocytes % (auto) 1.3 %; Neutrophils # (auto) 6.23 K/uL (1.4-6.5); Neutrophils % (auto) 88.2 %; Platelet Count 259 K/uL (130-400); RDW Coefficient of Variation 13.1 % (11.5-14.5); RDW Standard Deviation 46.9 fL (36.4-46.3); Red Blood Count 4.31 M/uL (4.2-5.4); White Blood Count 7.06 K/uL (4.8-10.8)
[2020-04-05 02:50] LABS: Partial Thromboplastin Time 27.1 Seconds (21.0-31.0)
[2020-04-05 02:55] LABS: BUN Creatinine Ratio 17.4 (10-20); Blood Urea Nitrogen 13 mg/dl (7-18); Carbon Dioxide 29 mmol/L (21-32); Chloride 104 mmol/L (98-107); Creatinine Clr Calc Pharmacy 61.4 ml/min; Est GFR (African American) 85.6; Est GFR (Non-African American) 73.8; Glucose 122 mg/dl (70-99); Magnesium 2.1 mg/dl (1.8-2.4); Potassium 3.8 mmol/L (3.5-5.1); Sodium 136 mmol/L (136-145)
[2020-04-05 03:00] LABS: Troponin I < 0.015 ng/ml (0-0.045)
[2020-04-05] MEDS ORDERED: SODIUM CHLORIDE 0.9% 500 ML IV ONE (03:03)
--- NOTE | 2020-04-05 06:40 | Communication Note ---
Date of Service: April 04, 2020 Patient complaint of substernal pain going to her back as per RN. " Similar to previous heart attack/stroke as per patient." SBP 200s Patient refused nitroglycerin. Patient requested for Tums. Discomfort relieved by Tums. EKG as per my interpretation : Rate 60, NSR, LAD, LAFB, 1 AVB, no ischemia CT chest initial read: No thoracic aortic aneurysm or dissection. No pulmonary embolism. No pulmonary parenchymal abnormality. CT abdomen pelvis initial read: Ectatic infrarenal abdominal aorta measuring 2.9 cm with atheromatous calcification. AP Chest pain Uncontrolled hypertension Rule out ACS, hx CAD Continue home Plavix Continue home losartan HCTZ Titrate hydralazine Follow troponin Follow TTE ordered by AM provider Cardiology consult in a.m. RE chest pain Will relay to AM provider.
--- NOTE | 2020-04-05 08:31 | CT Scan Report ---
CT angio abdomen pelvis w con CT DOSE: CLINICAL HISTORY: Back pain. History of aneurysm. TECHNIQUE: CT angiography was performed in a dynamic helical fashion during intravenous administratio n of 119 cc of Optiray 320. MIP images were acquired. A dose lowering technique was utilized adherin g to the principles of ALARA. COMPARISON STUDY: None. FINDINGS: There are minimal dependent atelectatic changes at the lung bases. There is a small hiatal hernia There are several small hepatic hypodensities, likely representing cysts. The gallbladder is surgically absent. No splenic lesions are visualized in the central face study. No pancreatic masses are visualized. No adrenal masses are visualized. No solid renal masses are visualized in this arterial phase study. Renal hypodensities are felt to re present cysts. There is no hydronephrosis. There are no transition zones indicate bowel obstruction. There is colonic diverticulosis. There is n o evidence of acute diverticulitis. There is a lower anterior abdominal wall ventral hernia containing small bowel loops. This is not obs tructive. The appendix appears normal. The uterus is surgically absent There are diffuse atheromatous changes present within the abdominal aorta. There is no evidence of he modynamically significant celiac superior mesenteric or renal artery stenosis. There is ectasia of th e perirenal abdominal aorta which measures 28 mm in maximal diameter. There is a patent right common iliac artery stent. There is no evidence of hemodynamically significant iliac artery stenosis. IMPRESSION: 1. Ectasia of the infrarenal abdominal aorta which measures 28 mm in diameter 2. No evidence of celiac superior mesenteric or renal artery stenosis 3. Suprapubic ventral hernia containing small bowel loops. There is no evidence of obstruction 4. Normal appendix 5. Diverticulosis. No evidence of acute diverticulitis ACT 112: Negative or not required by law. Electronically signed by: Dandre Oconnor M.D. 04/05/2020 8:30 AM
--- NOTE | 2020-04-05 08:39 | CT Scan Report ---
CT ANGIOGRAPHY OF THE CHEST DISSECTION PROTOCOL CLINICAL HISTORY: Chest and back pain. Evaluate for dissection. COMPARISON STUDY: Chest radiograph April 03 2020. TECHNIQUE: Patient was premedicated for IV dye allergy as per ED protocol. Before and following the I V administration of 119 mL of Optiray-320, helical axial images of the chest were obtained. Maximal intensity projections and sagittal and coronal reformats were viewed on an independent 3D workstation . IV contrast was administered without complication. Automated exposure control was utilized for th e study. A dose lowering technique was utilized adhering to the principles of ALARA. CT DOSE: 1562.35 mGy.cm FINDINGS: The caliber of the thoracic aorta is normal. There is no intramural hematoma or thoracic a ortic dissection. Mild cardiomegaly is noted. There is moderate coronary calcification. No pulmonary emboli are identified. The central airways are patent. There is no consolidation to suggest pneumonia . No pneumothorax or pleural effusion is noted. Mild emphysema is present. No acute rib or thoracic s pine fracture is noted. There is a small hiatal hernia. Lateral segment hepatic lesion reflects a cys t. The gallbladder is surgically absent. The abdomen and pelvis will be reported separately. IMPRESSION: 1. No thoracic aortic dissection. 2. No acute process within the chest. 3. Mild emphysema. 4. Small hiatal hernia. ACT 112: Negative or not required by law. Electronically signed by: Maykel Demarco M.D. 04/05/2020 8:38 AM
[2020-04-05] MEDS ORDERED: hydrALAZINE HCL 25 MG TAB PO SCH (09:00)
[2020-04-05] MEDS: NICOTINE 21 MG/24 HR TDSY TD SCH (09:09)
[2020-04-05] MEDS: LOSARTAN POTASSIUM 50 MG TAB PO SCH (09:10)
[2020-04-05] MEDS: ENOXAPARIN INJ 40 MG/0.4 ML SYR SQ SCH (09:11)
[2020-04-05] MEDS: LORazepam 0.5 MG TAB PO SCH ×2 (09:14→22:30)
--- NOTE | 2020-04-05 11:31 | Cardiology Consultation ---
Date of Consultation April 05, 2020 Assessment & Plan (1) Hypertensive crisis: (2) Atypical chest pain: (3) PVD (peripheral vascular disease): 74-year-old female evaluated regarding atypical chest discomfort. No evidence of acute coronary syndrome with nonischemic ECG and undetectable cardiac enzymes. CT angiogram of the chest without evidence of dissection or pulmonary embolus. Technically limited 2D transthoracic echocardiogram demonstrates preserved left ventricular systolic function without significant valvular pathology. Continue losartan/hydrochlorothiazide. 10 mg dose of hydralazine ineffective, however, patient demonstrating improved clinical response to 25 mg. Intolerance to amlodipine noted. Consider transition from hydralazine to alternative calcium channel david, felodipine or trial of low-dose nonselective beta-david (carvedilol 3.125 mg twice daily) in outpatient setting. History of Present Illness Reason for Consultation: Chest pain, hypertensive urgency Requesting Physician: Dr. Augustin Attending Physician: Jung Powell MD History of Present Illness 74-year-old female presented to the emergency department due to uncontrolled hypertension. Evaluated by primary care physician 04/03/2020 and referred to the emergency department. Blood pressure elevated since admission. Hydralazine 25 mg added to medications yesterday. Blood pressure slowly improving. Last evening, patient reported chest and neck discomfort. ECG without ischemic changes. This morning she notes an episode of chest pain associated with echocardiogram. Denies any chest heaviness or tightness. No shortness of breath, palpitations, lightheadedness, dizziness, syncope, or near syncope. Per chart review, she follows with a environmental specialist in [place]. History of chronic class II3 angina although cardiac catheterization performed in 2016 demonstrated mild to moderate nonobstructive coronary disease with a 40% LAD, and 30% circumflex stenosis. Other pertinent cardiovascular history noted below. Currently, patient is resting comfortably. Denies chest discomfort or heaviness this morning. Cardiac enzymes are negative x2 sets. No dysrhythmias on telemetry. Intolerance to lisinopril and amlodipine noted per chart review. She reported headache with 2.5 mg of amlodipine in the past, and cough associated with lisinopril. Tolerating hydralazine thus far. Admits to significant dietary indiscretion/excessive sodium intake in the outpatient setting. Consuming deli meats and salted snacks on a daily basis. Offers no other concerns/complaints at this time. Allergies Allergy/AdvReac Type Severity Reaction Status Date / Time lisinopril [From Zestril] Allergy Intermediate Cough Verified 04/03/20 17:54 amlodipine AdvReac Intermediate headache/puffy Verified 04/03/20 20:32 head sensation as per px hydroxyzine [From Vistaril] AdvReac Intermediate FELT VERY Verified 04/03/20 17:54 "JUMPY". IVP DYE AdvReac Intermediate HEART Uncoded 04/03/20 17:54 RACING, PALPITATIONS Home Medications Medication Instructions Recorded Confirmed Type citalopram 10 mg PO HS 04/03/20 04/03/20 History clopidogrel 75 mg PO .DAILY @ 1300 04/03/20 04/03/20 History lorazepam 0.5 mg PO BID 04/03/20 04/03/20 History losartan-hydrochlorothiazide 1 tab PO QAM 04/03/20 04/03/20 History pravastatin 20 mg PO HS 04/03/20 04/03/20 History hydralazine 25 mg PO TID 30 Days #90 tab 04/06/20 Rx trazodone 25 mg PO HS PRN 30 Days #30 tab 04/06/20 Rx Patient History Medical History Abdominal aortic aneurysm Carotid stenosis Cerebrovascular disease COPD (chronic obstructive pulmonary disease) Coronary artery disease Dyslipidemia Essential tremor FH: total abdominal hysterectomy and bilateral salpingo-oophorectomy Hiatal hernia Hypertension Iliac artery stenosis, right Major depressive disorder Schatzki's ring Tobacco use disorder Surgical History H/O section Hx of colonoscopy Social History Smoking Status: Current every day smoker Cigarettes Per Day: 3; Hx Alcohol Use: No Hx Substance Use: No Beliefs That Will Affect Care: Sabianism (Latter-Day ) Current Living Situation: Family Feels Safe at Home: Yes Assistive Devices: Glasses Review of Systems Review of Systems: All systems reviewed & are unremarkable except as noted in Subjective Physical Exam Constitutional: well developed and well nourished; no acute distress Respiratory: + abnormal respiratory effort, no respiratory distress and no labored breathing Auscultation: lungs clear to auscultation bilaterally; no crackles, no rales, no rhonchi and no wheezes Cardiovascular: Rate/Rhythm: regular rate and regular rhythm Heart Sounds: normal S1 and normal S2; no murmur Vessels: radial pulses present; no JVD and no carotid bruit Extremities: no edema Gastrointestinal (Abdomen): Inspection/Auscultation: abdomen normal to inspection and normal bowel sounds; abdomen not distended Percussion/Palpation: abdomen soft; abdomen nontender, no guarding and abdomen not rigid Musculoskeletal: Head/Neck/Chest: normocephalic and head atraumatic Skin: no rashes, warm and dry Neurologic: CN's II-XI intact bilaterally and moves all extremities Motor/Sensory: no tremor Psychiatric: Orientation: alert and oriented x 3 Affect: + anxious affect Results & Data ([facility]) Vital Signs (Past 12 Hours) Vital Signs Temp Pulse Pulse Resp BP Pulse Ox 04/05/20 07:51 36.7 C 71 18 136/84 95 04/05/20 07:00 62 04/05/20 03:32 37.1 C 59 L 16 155/79 H 93 04/05/20 00:00 69 04/04/20 23:43 36.3 C L 69 20 176/80 H 93
--- NOTE | 2020-04-05 12:22 | XRay Report ---
XR cervical spine 2 or 3V CLINICAL HISTORY: Neck pain COMPARISON STUDY: No previous studies for comparison. FINDINGS: The prevertebral soft tissues are normal. No fractures or subluxations are visualized. Ther e are moderate multilevel degenerative changes with multilevel disc space narrowing and small osteoph ytes. IMPRESSION: 1. Moderate multilevel degenerative change 2. No acute fractures or traumatic subluxations identified. ACT 112: Negative or not required by law. Electronically signed by: Dandre Oconnor M.D. 04/05/2020 12:21 PM
[2020-04-05] MEDS: CLOPIDOGREL BISULFATE 75 MG TAB PO SCH (12:44)
--- NOTE | 2020-04-05 13:14 | Electrocardiogram Report ---
Test Reason : Blood Pressure : / mmHG Vent. Rate : 062 BPM Atrial Rate : 062 BPM P-R Int : 194 ms QRS Dur : 078 ms QT Int : 402 ms P-R-T Axes : 031 -32 054 degrees QTc Int : 408 ms Normal sinus rhythm Left axis deviation Inferior infarct , age undetermined Abnormal ECG When compared with ECG of 04-APR-2020 20:12, (unconfirmed) No significant change was found Confirmed by Jose Guadalupe Alas ([id number]) on 04/05/2020 1:14:05 PM Referred By: Bell Rojo Confirmed By:Jose Guadalupe Alas
--- NOTE | 2020-04-05 13:14 | Electrocardiogram Report ---
Test Reason : Blood Pressure : / mmHG Vent. Rate : 061 BPM Atrial Rate : 061 BPM P-R Int : 190 ms QRS Dur : 084 ms QT Int : 410 ms P-R-T Axes : 034 -31 074 degrees QTc Int : 412 ms Normal sinus rhythm Left axis deviation Abnormal ECG When compared with ECG of 03-APR-2020 17:19, No significant change was found Confirmed by Jose Guadalupe Alas ([id number]) on 04/05/2020 1:13:49 PM Referred By: Bell Rojo Confirmed By:Jose Guadalupe Alas
--- NOTE | 2020-04-05 13:28 | Hospitalist Progress Note ---
Date of Service April 05, 2020 Assessment & Plan (1) Hypertensive crisis: Hypertensive urgency Atypical Chest Pain CT Head:No acute intracranial findings Anxiety could be contributing Normal TSH ECHO: EF 65 to 70%. Grade 1 diastolic dysfunction. No regional wall motion abnormalities noted. Trace mitral regurgitation. Negative Troponin H/O Amlodipine Intolerance Continue losartan, hydrochlorothiazide Appreciate Cardiology Input Hydralazine increased to 25mg TID May need sleep study as outpatient Plan to transition to femoral neck pain or carvedilol in the outpatient setting. Anxiety Disorder Continue citalopram 10 mg and lorazepam BID Trazodone 25 mg as needed for insomnia Appreciate Psychiatry Input Hyperlipidemia H/O CVA PVD S/P surgery on statin, Plavix COPD Pulmonary status at baseline Monitor Prediabetes Outpatient hemoglobin A1c of 5.13 September 2019 Tobacco use disorder Advised to quit smoking Nicotine patch DVT Px: Lovenox SQ Code Status Full code Admission and Anticipated Discharge Date Admission Date: April 03, 2020 Subjective Patient is seen and examined at bedside States having neck discomfort Denies chest pain this morning Discussed with cardiology today Also denies dyspnea, dizziness, nausea, abdominal pain Review of Systems Review of Systems: All systems reviewed & are unremarkable except as noted in HPI & below Physical Exam Physical Exam: Physical Exam: Vitals signs as noted above General Appearance:Moderately built and nourished, no apparent distress Head: normocephalic, Atraumatic Eyes: normal inspection, EOMI Neck: supple, Trachea midline Respiratory/Chest: Normal breath sounds, CTA Cardiovascular: S1, S2, No murmur Abdomen/GI:Soft, Non tender, Bowel sounds present Extremities/Musculoskelatal:normal inspection, no edema Neurologic/Psych:AAOX3, grossly no focal neurological deficits Skin: normal color, warm Results & Data Results & Data ([facility]) Vital Signs (Past 12 Hours) Vital Signs Temp Pulse Pulse Resp BP Pulse Ox 04/05/20 12:12 36.3 C L 74 20 162/82 H 96 04/05/20 07:51 36.7 C 71 18 136/84 95 04/05/20 07:00 62 04/05/20 03:32 37.1 C 59 L 16 155/79 H 93 Laboratory Results Short CBC 04/05/20 Range/Units 02:12 WBC 7.06 (4.8-10.8) K/uL Hgb 14.9 (12.0-16.0) g/dL Hct 41.9 (37-47) % Plt Count 259 (130-400) K/uL BMP 04/05/20 02:12 Sodium 136 Potassium 3.8 Chloride 104 Carbon Dioxide 29 BUN 13 Creatinine 0.78 Glucose 122 H Calcium 9.0 Cardiac Enzymes 04/04/20 04/05/20 Range/Units 20:56 02:12 Troponin I < 0.015 < 0.015 (0-0.045) ng/ml
[2020-04-05] MEDS: hydrALAZINE HCL 25 MG TAB PO SCH ×2 (14:00→21:35)
[2020-04-05] MEDS: LORazepam 0.5 MG/1 ML VIAL IV PRN (14:36)
[2020-04-05] MEDS: CITALOPRAM 20 MG TAB PO SCH (21:32)
[2020-04-05] MEDS: PRAVASTATIN SOD 20 MG TAB PO SCH (21:34)
[2020-04-06] MEDS ORDERED: COUGH DROP (SUGAR FREE) LOZ 24 LOZ/1 BOX BUCCAL STA (05:54)
[2020-04-06] MEDS ORDERED: COUGH DROP (SUGAR FREE) LOZ 24 LOZ/1 BOX BUCCAL ONE (05:56)
[2020-04-06] MEDS: hydrALAZINE HCL 25 MG TAB PO SCH (06:02)
[2020-04-06 07:42] LABS: BUN Creatinine Ratio 22.4 (10-20); Calcium 8.9 mg/dl (8.5-10.1); Creatinine Clr Calc Pharmacy 53.8 ml/min; Est GFR (Non-African American) 63.8; Potassium 3.3 mmol/L (3.5-5.1)
[2020-04-06] MEDS ORDERED: POTASSIUM CHLORIDE CRTAB 20 MEQ TABCR PO ONE (08:30)
[2020-04-06] MEDS ORDERED: hydroCHLOROthiazide 25 MG TAB PO SCH (09:00)
--- NOTE | 2020-04-06 09:13 | Hospitalist Progress Note ---
Date of Service April 06, 2020 Assessment & Plan (1) Hypertensive crisis: Hypertensive urgency Atypical Chest Pain CT Head:No acute intracranial findings Anxiety could be contributing Normal TSH ECHO: EF 65 to 70%. Grade 1 diastolic dysfunction. No regional wall motion abnormalities noted. Trace mitral regurgitation. Negative Troponin H/O Amlodipine Intolerance Continue losartan, hydrochlorothiazide Appreciate Cardiology Input Hydralazine increased to 25mg TID May need sleep study as outpatient Plan to transition from Hydralazine to felodipine or carvedilol in the outpatient setting. Bp better controlled No recurrence of chest pain Anxiety Disorder Continue citalopram 10 mg and lorazepam BID Trazodone 25 mg as needed for insomnia Appreciate Psychiatry Input Hyperlipidemia H/O CVA PVD S/P surgery on statin, Plavix COPD Pulmonary status at baseline Monitor Prediabetes Outpatient hemoglobin A1c of 5.13 September 2019 Tobacco use disorder Advised to quit smoking Nicotine patch DVT Px: Lovenox SQ Code Status Full code Disposition Plan to discharge home today Admission and Anticipated Discharge Date Admission Date: April 03, 2020 Subjective Patient is seen and examined at bedside States feeling well today No recurrence of chest pain Neck pain is much improved Had slept well BP better controlled Denies dyspnea, dizziness, nausea, abdominal pain Review of Systems Review of Systems: All systems reviewed & are unremarkable except as noted in HPI & below Physical Exam Physical Exam: Physical Exam: Vitals signs as noted above General Appearance:Moderately built and nourished, no apparent distress Head: normocephalic, Atraumatic Eyes: normal inspection, EOMI Neck: supple, Trachea midline Respiratory/Chest: Normal breath sounds, CTA Cardiovascular: S1, S2, No murmur Abdomen/GI:Soft, Non tender, Bowel sounds present Extremities/Musculoskelatal:normal inspection, no edema Neurologic/Psych:AAOX3, grossly no focal neurological deficits Skin: normal color, warm Results & Data Results & Data ([facility]) Vital Signs (Past 12 Hours) Vital Signs Temp Pulse Pulse Pulse Resp BP Pulse Ox 04/06/20 08:02 37.0 C 75 18 110/65 96 04/06/20 07:00 65 04/06/20 05:51 109/67 04/06/20 04:00 36.7 C 60 18 134/75 96 04/06/20 00:27 68 04/05/20 23:09 37.1 C 77 18 110/66 96 Laboratory Results [facility] 04/06/20 06:12 Sodium 137 Potassium 3.3 L Chloride 104 Carbon Dioxide 28 BUN 20 H D Creatinine 0.88 Glucose 99 Calcium 8.9
--- NOTE | 2020-04-06 09:28 | Discharge Summary ---
Date of Service April 06, 2020 Admission HPI Per Admitting Provider History obtained from patient and records. Medical history significant for CVA, PVD status post surgery, hypertension, hypertension, hyperlipidemia, COPD, ongoing tobacco abuse, prediabetes, anxiety/mood disorder. Amlodipine added to patient's enalapril/HCTZ by patient's [place] news camera person last June 2019. Enalapril HCTZ switched to losartan HCTZ by PCP last week due to cough concerns with latter medication. Initially one half later to a whole tablet once daily. SBP 170s to 180s at home. Patient Amlodipine stopped after patient stated concerns about her head feeling very puffy from medication. Admits to overwhelming anxiety. Patient denies chest pain, S OB. Denies dietary discretion. Admits to snoring and disruptive sleep. No prior sleep studies. SBP at home 180s to 190s despite new medication. Mild dizziness complaints without headache. Posterior achy neck pain symptoms. SBP 230s at PCP's office. Patient sent to the ER for evaluation. IV hydralazine given at the ER. SBP currently 190s. Medical History as above Surgical History : section, BTL, iliac artery stent/angioplasty, HUAN, gynecologic procedures Family History : Heart disease, DM Personal/Social history : 1 pack daily, no EtOH intake, retired [employer] Admission Exam Per Admitting Provider Physical Exam Physical Exam: GENERAL: Comfortable, anxious, obese, well-groomed, no respiratory distress, tremulous SKIN: Normal color, warm HEENT: Bespectacled, [place] palpebral conjunctivae, no ptosis, moist buccal mucosa NECK : Supple, short neck, no tenderness CHEST : Decreased breath sounds , no tenderness HEART : Bradycardic, no obvious murmurs ABDOMEN: Some distention, nontender EXTREMITIES : Minimal LE swelling, no LE tenderness, no other conspicuous deformities noted NEUROLOGIC : Coherent, no facial asymmetry, chronic rest tremors, no other gross focality Principal Diagnosis Hypertensive urgency Anxiety Tobacco use disorder Discharge Data Allergies Allergy/AdvReac Type Severity Reaction Status Date / Time lisinopril [From Zestril] Allergy Intermediate Cough Verified 04/03/20 17:54 amlodipine AdvReac Intermediate headache/puffy Verified 04/03/20 20:32 head sensation as per px hydroxyzine [From Vistaril] AdvReac Intermediate FELT VERY Verified 04/03/20 17:54 "JUMPY". IVP DYE AdvReac Intermediate HEART Uncoded 04/03/20 17:54 RACING, PALPITATIONS Consultations 04/03/20 19:20 ED Decision to Admit Stat 04/03/20 21:44 Consult Psychiatry Routine 04/05/20 00:54 Consult Cardiology Routine Procedures Performed ECHO: EF 65 to 70%. Grade 1 diastolic dysfunction. No regional wall motion abnormalities noted. Trace mitral regurgitation. Chest CTA: No thoracic aortic dissection. No acute process within the chest. Mild emphysema. Small hiatal hernia. Neck X ray:Moderate multilevel degenerative change. No acute fractures or traumatic subluxations identified. ABD CTA 1. Ectasia of the infrarenal abdominal aorta which measures 28 mm in diameter 2. No evidence of celiac superior mesenteric or renal artery stenosis 3. Suprapubic ventral hernia containing small bowel loops. There is no evidence of obstruction 4. Normal appendix 5. Diverticulosis. No evidence of acute diverticulitis Head CT: No acute intracranial findings Ordered Studies 04/03/20 17:21 CT head/brain wo con Stat 04/04/20 22:43 CT angio abdomen pelvis w con Urgent CT angio chest dissec wo/w con Urgent Hospital Course (1) Hypertensive crisis: Hypertensive urgency Atypical Chest Pain CT Head:No acute intracranial findings Anxiety could be contributing Normal TSH ECHO: EF 65 to 70%. Grade 1 diastolic dysfunction. No regional wall motion abnormalities noted. Trace mitral regurgitation. Negative Troponin H/O Amlodipine Intolerance Continue losartan, hydrochlorothiazide Appreciate Cardiology Input Hydralazine increased to 25mg TID May need sleep study as outpatient Plan to transition from Hydralazine to felodipine or carvedilol in the outpatient setting. Bp better controlled No recurrence of chest pain Anxiety Disorder Continue citalopram 10 mg and lorazepam BID Trazodone 25 mg as needed for insomnia Appreciate Psychiatry Input Hyperlipidemia H/O CVA PVD S/P surgery on statin, Plavix COPD Pulmonary status at baseline Monitor Prediabetes Outpatient hemoglobin A1c of 5.13 September 2019 Tobacco use disorder Advised to quit smoking Nicotine patch DVT Px: Lovenox SQ Code Status Full code Disposition Plan to discharge home today Total Time Total Time Spent Total Time Spent (In Minutes): 40 minutes Total Time Includes: Examination of the Patient, Discharge Planning, Medication Reconciliation, Communication With Other Providers and Other Discharge Plan Discharge Items Patient Disposition: Home - Self-Care Reason For Visit: HTN CRISIS Discharge Diagnosis: Hypertensive urgency Anxiety Tobacco use disorder Condition on Discharge: Good Activity: Per Instructions section Exercise/Sports: Gradually increase as tolerated Non-emergency contact: Primary Care Provider and Travel Pt Call non-emergency contact if: you have any medication questions, your symptoms worsen, your pain is not controlled, your pain is worsening, your pain is unusual for you, your pain is concerning for you and you have a fever Follow-up/Referrals: Bell Rojo MD [Primary Care Provider] - 04/10/20 2:20 pm (Please follow up with Dr. Rojo on 04/10/20 at 2:20 pm. Please arrive to the office 15 minutes early for your appointment. If you are unable to keep this appointment, please call the office to reschedule at [phone].) Diet: Heart Healthy Addtl Attending Provider Instructions: Follow up with your PCP Dr. Rojo in 1 week as advised Follow up with your Travel Pt in 2 weeks to adjust your blood pressure medications as advised Follow up with your Psychiatrist as needed for anxiety. Quit smoking Tobacco as advised Get Sleep Study as outpatient to rule out Obstructive Sleep Apnea Seek immediate medical attention if your symptoms reoccur or worsen Pending Studies at Discharge: No Stand-Alone Forms: My [facility] [employer], Smoking Cessation Medications and DC Order Prescriptions: New trazodone 50 mg Tablet 25 mg PO HS PRN (Reason: insomnia) 30 Days Qty: 30 RF: 0 hydralazine 25 mg Tablet 25 mg PO TID 30 Days Qty: 90 RF: 0 Continued pravastatin 40 mg tablet 20 mg PO HS RF: 0 citalopram 10 mg tablet 10 mg PO HS RF: 0 clopidogrel 75 mg tablet 75 mg PO .DAILY @ 1300 RF: 0 lorazepam 0.5 mg tablet 0.5 mg PO BID RF: 0 losartan-hydrochlorothiazide 100-12.5 mg tablet 1 tab PO QAM RF: 0 Discharge Orders: Discharge Order (Routine); Ordered 04/06/20 Ordered By: Jung Acevedo/Other Patient Handouts: Low-Salt Choices, Your High Blood Pressure Risk Factors, Understanding Anxiety Disorders, Causes and Effects of Stress, [place] to Managing Stress, Identifying Causes of Stress, Stress Relief: Activities, Stress Relief: Relaxation, Stress Relief: A Positive Lifestyle, Understanding Generalized Anxiety ... Admission Data Admit Date/Time: 04/03/20 20:32 Attending Provider: Jung Powell Admit Provider: Scott Hillman Primary Care Provider: Bell Rojo Other Providers: Scott Hillman ; Francisco Javier Crane ; Janessa Mathew ; Itz Cramer ; Toñito Riojas ; Johnathan Naranjo ; Abena Rincon ; Marcelino Rocha ; Marion Santamaria ; Chandni Ruzi ; Valarie Barillas ; Wilfredo Tran I. ; Cortney Cantrell ; Yaquelin Culp ; Kierra Pires ; Marcelino Batista ; Deep Mancini ; Rodo Tirado ; Luis Orellana ; Wilfredo Pablo ; Bran Arreguin ; Drea Byrd ; Mago Roland ; Apolinar Wilson Other Interventions: Discharge Summary Assessment (RN) Last Done: 04/06/20 10:20
[2020-04-06] MEDS: ENOXAPARIN INJ 40 MG/0.4 ML SYR SQ SCH (09:45)
[2020-04-06] MEDS: LORazepam 0.5 MG TAB PO SCH (09:45)
[2020-04-06] MEDS: NICOTINE 21 MG/24 HR TDSY TD SCH (09:45)
[2020-04-06] MEDS: LOSARTAN POTASSIUM 50 MG TAB PO SCH (09:45)
--- NOTE | 2020-04-06 11:48 | Cardiology Progress Note ---
Date of Service April 06, 2020 Assessment & Plan (1) Hypertensive crisis: (2) Atypical chest pain: (3) PVD (peripheral vascular disease): Blood pressure improved with addition of hydralazine. Consider transition of hydralazine to felodipine or low-dose carvedilol in the outpatient setting. Patient will follow up with her outpatient sculpture conservator in [place] for further recommendations. No further inpatient cardiac testing or intervention at this time. Thank you for allow me to participate in the care of your patient. Admission and Anticipated Discharge Date Admission Date: April 03, 2020 Subjective Patient seen and examined the bedside. Blood pressure markedly improved. Denies chest pain or shortness of breath. Telemetry demonstrates sinus rhythm. No orthopnea, PND, lower extreme edema, or claudication. Denies palpitations, lightheadedness, dizziness, syncope, or near syncope. Overall feeling better today. Requesting discharge. Review of Systems Review of Systems: All systems reviewed & are unremarkable except as noted in Subjective Physical Exam Constitutional: well developed and well nourished; no acute distress Respiratory: + abnormal respiratory effort, no respiratory distress and no labored breathing Auscultation: lungs clear to auscultation bilaterally; no crackles, no rales, no rhonchi and no wheezes Cardiovascular: Rate/Rhythm: regular rate and regular rhythm Heart Sounds: normal S1 and normal S2; no murmur Vessels: radial pulses present; no JVD and no carotid bruit Extremities: no edema Gastrointestinal (Abdomen): Inspection/Auscultation: abdomen normal to inspection and normal bowel sounds; abdomen not distended Percussion/Palpation: abdomen soft; abdomen nontender, no guarding and abdomen not rigid Musculoskeletal: Head/Neck/Chest: normocephalic and head atraumatic Skin: no rashes, warm and dry Neurologic: CN's II-XI intact bilaterally and moves all extremities Motor/Sensory: no tremor Psychiatric: Orientation: alert and oriented x 3 Affect: + anxious affect Results & Data ([facility]) Vital Signs (Past 12 Hours) Vital Signs Temp Pulse Pulse Pulse Resp BP Pulse Ox 04/06/20 10:20 37.0 C 75 77 18 110/65 96 04/06/20 08:02 37.0 C 75 18 110/65 96 04/06/20 07:00 65 04/06/20 05:51 109/67 04/06/20 04:00 36.7 C 60 18 134/75 96 04/06/20 00:27 68
== END 2020-04-06 11:14 | disposition home or self-care (01) | DRG 305 ==
LOC: ED 16:44 → 2S 20:32